=== PATIENT | female | born 1945 | race Caucasian/White ===

== ENCOUNTER 2020-12-14 08:57 | Observation (INO) ==
[~2020-12-14 08:57] MED LIST: Buffered Lidocaine 1% SYRIN 1 ml INTRADERM ONE; Lactated Ringers 1000 ml BAG 1,000 ML IV SCH
[2020-12-14] MEDS ORDERED: ceFAZolin 2 GM in NS PREMIX 2 GM/100 ML BAG IVPB ONE (09:21)
[2020-12-14] MEDS ORDERED: Albumin Human 5% 25 GM/500 ML BTL IV ONE (10:00)
[2020-12-14] MEDS ORDERED: Propofol 10 MG/ML 20 ML BTL ONE ×2 (10:27→12:24)
[2020-12-14] MEDS ORDERED: Dexamethasone IV 4 MG/ML VIAL 1 ml VIAL ONE (10:27)
[2020-12-14] MEDS ORDERED: Ondansetron 4 mg VIAL 2 MG/ML 2 ml VIAL ONE (10:27)
[2020-12-14] MEDS ORDERED: fentaNYL 250 mcg/5 ml 50 MCG/ML 5 ml VIAL (250 MCG) ONE (10:28)
[2020-12-14] MEDS ORDERED: Midazolam 2 mg/2 ml VIAL 1 mg/ml 2 ml VIAL (2 mg) ONE (10:29)
[2020-12-14] MEDS ORDERED: Rocuronium 50 mg VIAL 10 mg/ml 5 ml VIAL (50 mg) ONE (10:30)
[2020-12-14] MEDS ORDERED: ROPIVACAINE 5 MG/ML 30 ML BTL (0.5%) ONE (10:39)
[2020-12-14] MEDS ORDERED: Etomidate 20 mg/10 ml 2 MG/ML 10 ml VIAL ONE (11:00)
[2020-12-14] MEDS ORDERED: HYDROmorphone 1 MG/1 ML SYRINGE ONE ×3 (11:49→13:41)
[2020-12-14] MEDS ORDERED: diPHENhydraMINE IV 50 MG/ML 1 ml VIAL (BENADRYL) IV PRN ×2 (11:52→13:27)
[2020-12-14] MEDS ORDERED: Lactulose 30 ml UDC PO PRN (11:52)
[2020-12-14] MEDS ORDERED: Morphine 2 MG/ML SYRINGE IV PRN (11:52)
[2020-12-14] MEDS ORDERED: Magnesium Hydroxide LIQ 30 ML UDC PO PRN (11:52)
[2020-12-14] MEDS ORDERED: diPHENhydraMINE 25 mg TAB PO PRN (11:52)
[2020-12-14] MEDS ORDERED: Prochlorperazine 5 mg/ml 2 ml VIAL (10 mg) IV PRN (11:59)
[2020-12-14] MEDS ORDERED: Lactated Ringers 1000 ml BAG 1,000 ML IV SCH (12:00)
[2020-12-14] MEDS ORDERED: Lidocaine 2% PF 5 ML VIAL ONE (12:51)
[2020-12-14] MEDS ORDERED: Sugammadex 500 MG/5 ML 5 ml VIAL IV PUSH ONE (12:58)
[2020-12-14] MEDS ORDERED: Acetaminophen IV 1 GM/100ML 100 ML IV ONE (13:04)
[2020-12-14] MEDS ORDERED: DiMENhydriNATE IV 50 mg/ml 1 ml VIAL IV PUSH PRN (13:27)
[2020-12-14] MEDS ORDERED: Naloxone 0.4 mg VIAL 0.4 mg/ml 1 ml VIAL IV PRN (13:27)
[2020-12-14] MEDS ORDERED: DiMENhydriNATE IV 50 mg/ml 1 ml VIAL ONE (13:41)
[2020-12-14] MEDS: HYDROmorphone 1 MG/1 ML SYRINGE IV PRN ×3 (13:44→14:11)
[2020-12-14] MEDS ORDERED: fentaNYL 100 mcg/2 ml 50 MCG/ML VIAL ONE (13:45)
[2020-12-14] MEDS: fentaNYL 100 mcg/2 ml 50 MCG/ML VIAL IV PRN ×3 (13:50→14:14)
[2020-12-14] MEDS: ceFAZolin 1 GM ADVAN 1 GM in NS 0.9% 50 ML 50 ML IVPB SCH (19:37)
[2020-12-14] MEDS: Magnesium Hydroxide LIQ 30 ML UDC PO SCH (19:39)
[2020-12-14] MEDS: CMC:Simvastatin 10 mg TAB (NF) PO SCH (19:46)
[2020-12-14] MEDS ORDERED: Carvedilol 12.5 MG TAB (NF) PO SCH (21:00)
[2020-12-15] MEDS: ceFAZolin 1 GM ADVAN 1 GM in NS 0.9% 50 ML 50 ML IVPB SCH ×2 (03:25→11:12)
[2020-12-15 06:12] LABS: Hematocrit 33 % (35-47); Mean Platelet Volume 8.5 fL (7.4-10.4); Platelet Count 162 10^3/uL (150-450)
[2020-12-15 06:39] LABS: EGFR African American 31.4 (>60); EGFR Non-African American 25.9 (>60); Potassium 5.2 mmol/L (3.5-5.0)
[2020-12-15] MEDS: Vitamin THERAPEUTIC TAB PO SCH (09:58)
[2020-12-15] MEDS: Magnesium Hydroxide LIQ 30 ML UDC PO SCH ×3 (09:59→21:48)
[2020-12-15] MEDS ORDERED: NS 0.9% 500 ml BAG 500 ML IV ONE (11:37)
[2020-12-15] MEDS ORDERED: NS 0.9% 250 ml 250 ML IV ONE (11:37)
[2020-12-15 14:54] LABS: Urine Appearance Cloudy; Urine Bilirubin Negative (Negative); Urine Blood Negative (Negative); Urine Color Yellow; Urine Glucose Negative (Negative); Urine Ketones Negative (Negative); Urine Nitrite Negative (Negative); Urine Protein Negative (Negative); Urine Specific Gravity 1.018 (1.002-1.030); Urine Urobilinogen Negative (Negative)
[2020-12-15 15:03] LABS: Urine Bacteria Absent (Absent); Urine Red Blood Cell Trace(0-2/hpf) (Absent); Urine Squamous Epithelial Cell Present (Absent); Urine White Blood Cell 3+(>20/hpf) (Absent)
[2020-12-15 15:08] LABS: Urine Creatinine Concentration 112.38 mg/dL
[2020-12-15 16:59] LABS: EGFR African American 31.7 (>60); EGFR Non-African American 26.2 (>60)
[2020-12-15] MEDS: CMC:Simvastatin 10 mg TAB (NF) PO SCH (21:45)
[2020-12-16 07:00] LABS: Hematocrit 32 % (35-47); Hemoglobin 10.4 g/dL (12.0-16.0); Mean Corpuscular HGB Conc 33 g/dL (31-36); Mean Corpuscular Hemoglobin 30 pg (27-31); Mean Corpuscular Volume 93 fL (80-97); Mean Platelet Volume 8.4 fL (7.4-10.4); Platelet Count 157 10^3/uL (150-450); Red Blood Count 3.43 10^6 /uL (3.70-4.87); Red Cell Distribution Width 15 % (10-15); White Blood Count 11.8 10^3/uL (3.5-10.8)
[2020-12-16 07:08] LABS: Calcium 8.1 mg/dL (8.6-10.3); EGFR African American 34.7 (>60); EGFR Non-African American 28.7 (>60); Potassium 4.6 mmol/L (3.5-5.0)
[2020-12-16] MEDS: Magnesium Hydroxide LIQ 30 ML UDC PO SCH ×2 (09:04→21:07)
[2020-12-16] MEDS: Vitamin THERAPEUTIC TAB PO SCH (09:05)
[2020-12-16] MEDS: CMC:Simvastatin 10 mg TAB (NF) PO SCH (21:07)
[2020-12-17 05:18] LABS: Hematocrit 30 % (35-47); Hemoglobin 9.9 g/dL (12.0-16.0); Mean Platelet Volume 8.2 fL (7.4-10.4); Platelet Count 149 10^3/uL (150-450)
[2020-12-17 05:34] LABS: Calcium 8.2 mg/dL (8.6-10.3); EGFR African American 37.4 (>60); EGFR Non-African American 30.9 (>60); Potassium 4.9 mmol/L (3.5-5.0)
[2020-12-17 08:46] VITALS: BP 116/99
[2020-12-17] MEDS: Vitamin THERAPEUTIC TAB PO SCH (09:41)
[2020-12-17] MEDS: Magnesium Hydroxide LIQ 30 ML UDC PO SCH (09:43)
[2020-12-17] MEDS ORDERED: Morphine ER 15 mg TAB ** extended release PO ONE (11:35)
== END 2020-12-17 13:15 | disposition home or self-care (01) ==
LOC: INTOOBSV 08:57 → AA 08:57 → SSU 15:18
PROVIDERS: ADMIT Orthopaedic Surgery Adult Reconstructive Orthopaedic Surgery; ATTEND Orthopaedic Surgery Adult Reconstructive Orthopaedic Surgery